=== PATIENT | male | born 1990 | race Caucasian/White ===

== ENCOUNTER 2016-09-11 20:37 | Emergency (ER) | payer OTHER ==
[2016-09-11 20:52] VITALS: BP 142/86; PULSE 96; RESP 16; TEMP 97.9; O2SAT 100
--- NOTE | 2016-09-11 21:05 | ED PDOC ---
HPI: Headache Time Seen by Provider: 09/11/16 20:41 Chief Complaint (Nursing): Headache Chief Complaint (Provider): Headache History Per: Patient History/Exam Limitations: no limitations Onset/Duration Of Symptoms: Hrs (x1) Current Symptoms Are (Timing): Still Present Additional Complaint(s): Talon Ramsey is a 26 year old male that presents ot the ED with a chief complaint of pressure in his left temporal lobe. Patient states that he was exercising earlier today when he felt a popping sensation in the left temporal lobe, at which point he ceased his exercising due to dizziness. After the dizziness subsided, within a few minutes, patient states that he began exercising again, at which point the pressure set in. Pt denies any headache or dizziness at this time. No LOC, no nausea or vomiting. Past Medical History Reviewed: Historical Data, Nursing Documentation, Vital Signs Vital Signs: Last Vital Signs Temp 97.9 F 09/11/16 20:50 Pulse 96 H 09/11/16 20:50 Resp 16 09/11/16 20:50 BP 142/86 09/11/16 20:50 Pulse Ox 100 09/11/16 20:50 - Medical History PMH: No Chronic Diseases - Family History Family History: States: Unknown Family Hx - Home Medications Home Medications: Ambulatory Orders Medication Instructions Recorded Naproxen 500 mg PO BID PRN #20 tab 03/07/15 Naproxen [Naprosyn] 500 mg PO Q12 PRN #14 tablet 01/23/16 - Allergies Allergies/Adverse Reactions: Allergies Allergy/AdvReac Type Severity Reaction Status Date / Time No Known Allergies Allergy Verified 09/11/16 20:50 Review of Systems Neurological: Positive for: Headache (pressure-like feeling in left temporal lobe) Physical Exam - Reviewed Nursing Documentation Reviewed: Yes Vital Signs Reviewed: Yes - Physical Exam Appears: Positive for: Non-toxic, No Acute Distress Head Exam: Positive for: ATRAUMATIC, NORMOCEPHALIC Skin: Positive for: Normal Color, Warm Eye Exam: Positive for: Normal appearance, EOMI, PERRL Neck: Positive for: Normal, Painless ROM Extremity: Positive for: Normal ROM Neurologic/Psych: Positive for: Alert, dismantler II-XII, Oriented. Negative for: Motor/Sensory Deficits - ECG O2 Sat by Pulse Oximetry: 100 (RA) Pulse Ox Interpretation: Normal Medical Decision Making Medical Decision Making: Impression: Exercise induced headache Plan: * Toradol 30 mg IM Discussed with patient signs and symptoms of exercise induced headaches, as well as post coital headaches. neuro exam non focal on re-eval. Pt without any complaints of pain. . Patient stable for discharge home. Scribe Attestation: Documented by Tomeka Butterfield, acting as a scribe for Kandice Pires PA-C. Provider Scribe Attestation: All medical record entries made by the Scribe were at my direction and personally dictated by me. I have reviewed the chart and agree that the record accurately reflects my personal performance of the history, physical exam, medical decision making, and the department course for this patient. I have also personally directed, reviewed, and agree with the discharge instructions and disposition. Disposition - Clinical Impression Clinical Impression: Headache - Patient ED Disposition Is Patient to be Admitted: No - Disposition Disposition: Routine/Home Disposition Time: 21:08 Condition: STABLE Additional Instructions: Primary exercise headaches These headaches: Are usually described as throbbing Occur during or after strenuous exercise Affect both sides of the head in most cases Secondary exercise headaches These headaches may cause: The same symptoms as primary exercise headaches Vomiting Loss of consciousness Double vision Neck rigidity Primary exercise headaches typically last between five minutes and 48 hours, while secondary exercise headaches usually last at least a day and sometimes linger for several days or longer. Instructions: Tension Headache (ED) Forms: [employer] (Maltese) - POA Present On Arrival: None
== END 2016-09-11 23:30 | disposition home or self-care (01) ==
LOC: H.ER 20:37
DX: R51 Headache (principal); R11.10 Vomiting, unspecified

== ENCOUNTER 2018-02-28 11:34 | Emergency (ER) | payer OTHER ==
[2018-02-28 11:41] VITALS: RESP 18; TEMP 98.5; O2SAT 98
--- NOTE | 2018-02-28 11:49 | ED PDOC ---
HPI: General Adult Time Seen by Provider: 02/28/18 11:36 History Per: Patient History/Exam Limitations: no limitations Additional Complaint(s): 27 y/o male presents to ER with son who was tested with positive flu. He is asymptomatic and requesting tamiflu. PMD: None provided Past Medical History Reviewed: Historical Data, Nursing Documentation, Vital Signs Vital Signs: Last Vital Signs Temp 98.5 F 02/28/18 11:40 Pulse 72 02/28/18 11:40 Resp 18 02/28/18 11:40 BP 133/86 02/28/18 11:40 Pulse Ox 98 02/28/18 11:40 - Medical History PMH: No Chronic Diseases - Surgical History Surgical History: No Surg Hx - Family History Family History: States: Unknown Family Hx - Home Medications Home Medications: Ambulatory Orders Medication Instructions Recorded RX: Naproxen 500 mg PO BID PRN #20 tab 03/07/15 RX: Naproxen [Naprosyn] 500 mg PO Q12 PRN #14 tablet 01/23/16 Oseltamivir Phosphate [Tamiflu] 75 mg PO DAILY #7 capsule 02/28/18 - Allergies Allergies/Adverse Reactions: Allergies Allergy/AdvReac Type Severity Reaction Status Date / Time No Known Allergies Allergy Verified 09/11/16 20:50 Review of Systems ROS Statement: Except As Marked, All Systems Reviewed And Found Negative Constitutional: Negative for: Fever Gastrointestinal: Negative for: Vomiting, Abdominal Pain Physical Exam - Reviewed Nursing Documentation Reviewed: Yes Vital Signs Reviewed: Yes - Physical Exam Appears: Positive for: Non-toxic, No Acute Distress Head Exam: Positive for: ATRAUMATIC, NORMOCEPHALIC Skin: Positive for: Normal Color, Warm, Dry Eye Exam: Positive for: Normal appearance, EOMI, PERRL Neck: Positive for: Normal, Painless ROM, Supple Cardiovascular/Chest: Positive for: Regular Rate, Rhythm. Negative for: Murmur Respiratory: Positive for: Normal Breath Sounds. Negative for: Wheezing Gastrointestinal/Abdominal: Positive for: Normal Exam, Soft. Negative for: Tenderness Back: Positive for: Normal Inspection. Negative for: L CVA Tenderness, R CVA Tenderness Extremity: Positive for: Normal ROM. Negative for: Pedal Edema, Swelling Neurologic/Psych: Positive for: Alert, Oriented (x3) - ECG O2 Sat by Pulse Oximetry: 98 (RA) Pulse Ox Interpretation: Normal Medical Decision Making Medical Decision Makin MDM: 27 y/o presents requesting prophylactic tamiflu --Prescription given Scribe Attestation: Documented by Brenda Lopez, acting as a scribe for Regla Rivas MD. Provider Scribe Attestation: All medical record entries made by the Scribe were at my direction and personally dictated by me. I have reviewed the chart and agree that the record accurately reflects my personal performance of the history, physical exam, medical decision making, and the department course for this patient. I have also personally directed, reviewed, and agree with the discharge instructions and disposition. Disposition - Clinical Impression Clinical Impression: Flu-like symptoms - Disposition Disposition Time: 11:43 Condition: STABLE Additional Instructions: Take medication once per day for 7 days. Follow up with primary medical doctor or return to the emergency department if you develop trouble breathing, weakness, or other new symptoms. Prescriptions: Oseltamivir Phosphate [Tamiflu] 75 mg PO DAILY #7 capsule Instructions: Oseltamivir Forms: [employer] (Tuvaluan) Print Language: SLOVENIAN
[2018-02-28 13:46] VITALS: BP 130/82; PULSE 76
== END 2018-02-28 12:30 | disposition home or self-care (01) ==
LOC: H.ER 11:34
DX: J11.1 Influenza due to unidentified influenza virus with other respiratory manifestations (principal)

== ENCOUNTER 2018-03-26 20:48 | Emergency (ER) | payer OTHER ==
[2018-03-26 22:03] VITALS: RESP 18
[2018-03-26] MEDS ORDERED: Sodium Chloride 0.9% 1,000 ML IV STA (23:30)
--- NOTE | 2018-03-26 23:34 | ED PDOC ---
HPI: Abdomen Time Seen by Provider: 03/26/18 22:58 Chief Complaint (Nursing): Abdominal Pain Chief Complaint (Provider): abdominal pain History Per: Patient History/Exam Limitations: no limitations Onset/Duration Of Symptoms: Days (1) Current Symptoms Are (Timing): Still Present Location Of Pain/Discomfort: RLQ Additional Complaint(s): 27 y/o male presents for evaluation of right lower abdominal pain x 1 day. Patient reports fevers for the last 3 days, resolved as of today, with associated headaches, sore throat, dry cough. Patient states his son was also sick with fever and tested positive for the flu on friday. Patient went to his PMD yesterday and was offered Tamiflu but declined it. Denies nausea/vomiting, chest pain, shortness of breath, palpitations, changes in bowel movements, urinary symptoms. Last dose of ibuprofen taken yesterday Past Medical History Reviewed: Historical Data, Nursing Documentation, Vital Signs Vital Signs: Last Vital Signs Temp 98.4 F 03/26/18 21:59 Pulse 64 03/26/18 21:59 Resp 18 03/26/18 21:59 BP 127/83 03/26/18 21:59 Pulse Ox 99 03/26/18 21:59 - Medical History PMH: No Chronic Diseases - Surgical History Surgical History: No Surg Hx - Family History Family History: States: Unknown Family Hx - Home Medications Home Medications: Ambulatory Orders Medication Instructions Recorded Naproxen 500 mg PO BID PRN #20 tab 03/07/15 Naproxen [Naprosyn] 500 mg PO Q12 PRN #14 tablet 01/23/16 Oseltamivir Phosphate [Tamiflu] 75 mg PO DAILY #7 capsule 02/28/18 Fluticasone Nasal [Flonase] 1 actuation NS BID #1 bottle 03/27/18 Naproxen [Naprosyn] 500 mg PO Q12 PRN #14 tablet 03/27/18 Polyethylene Glycol 3350 [Miralax] 17 gm PO DAILY PRN #5 powd.pack 03/27/18 - Allergies Allergies/Adverse Reactions: Allergies Allergy/AdvReac Type Severity Reaction Status Date / Time No Known Allergies Allergy Verified 09/11/16 20:50 Review of Systems ROS Statement: Except As Marked, All Systems Reviewed And Found Negative ENT: Positive for: Nose Congestion, Throat Pain Gastrointestinal: Positive for: Abdominal Pain Physical Exam - Reviewed Nursing Documentation Reviewed: Yes Vital Signs Reviewed: Yes - Physical Exam Appears: Positive for: Well, Non-toxic, No Acute Distress Head Exam: Positive for: ATRAUMATIC, NORMAL INSPECTION, NORMOCEPHALIC Skin: Positive for: Normal Color Eye Exam: Positive for: Normal appearance ENT: Positive for: TM Is/Are (clear bilaterally), Nasal Congestion. Negative for: Tonsillar Exudate, Tonsillar Swelling Cardiovascular/Chest: Positive for: Regular Rate, Rhythm Respiratory: Positive for: Normal Breath Sounds Gastrointestinal/Abdominal: Positive for: Bowel Sounds, Soft, Tenderness (mild RLQ tenderness) Back: Positive for: Normal Inspection Extremity: Positive for: Normal ROM Neurologic/Psych: Positive for: Alert, Oriented (x3) - Laboratory Results Result Diagrams: 03/27/18 00:01 03/27/18 00:01 - ECG O2 Sat by Pulse Oximetry: 99 - Progress ED Course And Treament: -cbc -cmp -lactic acid -influenza -rapid strep -IV NS bolus -IV toradol -Ct abd/pelvis CT SCAN OF THE ABDOMEN AND PELVIS WITH CONTRAST. CLINICAL HISTORY: Right lower quadrant pain. TECHNIQUE: Multiple axial and coronal CT images were obtained through the abdomen and pelvis after administration of intravenous contrast material. COMMENTS: Mild diffuse thickening of the bladder. Uncomplicated colonic diverticulosis. Moderate amount of fecal residue in the large bowels. The liver is of uniform attenuation without mass or defect. There is no intra or extrahepatic biliary ductal dilatation. The spleen is normal. The gallbladder is within normal limits. The pancreas is of normal contour and attenuation characteristics. There is no evidence of adrenal mass. Both kidneys demonstrate prompt and equal nephrograms. The kidneys are normal in size, shape and configuration. There is no evidence of renal or ureteral mass. No renal or ureteral calculi are identified. There is no hydroureter or hydronephrosis. No evidence for appendicitis. There is no bowel wall thickening. No evidence for small or large bowel obstruction. There is no evidence of abdominal ascites or lymphadenopathy. There is no evidence of intrinsic or extrinsic bladder mass. There is no pelvic ascites or lymphadenopathy. Images of the lung bases show no evidence of pleural or parenchymal mass. There are no pleural effusions. The bony structures are free of lytic or blastic lesions. IMPRESSION: Mild diffuse thickening of the bladder. Underdistention versus mild cystitis. Uncomplicated colonic diverticulosis. Moderate amount of fecal residue in the large bowels Patient states he is feeling better on re-eval Patient educated on findings, discharged with rx Naproxen, Flonase, Miralax Advised increase fluid intake, rest Follow up with PMD within 2-3 days Return precautions given Disposition - Clinical Impression Clinical Impression: Flu-like symptoms, Abdominal pain, Constipation - Patient ED Disposition Is Patient to be Admitted: No Counseled Patient/Family Regarding: Studies Performed, Diagnosis, Need For Followup, Rx Given - Disposition Disposition: Routine/Home Disposition Time: 03:08 Condition: IMPROVED Prescriptions: Fluticasone Nasal [Flonase] 1 actuation NS BID #1 bottle Naproxen [Naprosyn] 500 mg PO Q12 PRN #14 tablet PRN Reason: Pain, Moderate (4-7) Polyethylene Glycol 3350 [Miralax] 17 gm PO DAILY PRN #5 powd.pack PRN Reason: Constipation Instructions: Constipation in Adults, Viral Syndrome (DC), Acute Abdomen (Belly Pain) Forms: [employer] (Bulgarian)
[2018-03-27 00:36] LABS: BASO % 0.5 % (0.0-2.0); EOS # 0.1 K/uL (0.0-0.7); EOS % 1.8 % (0.0-4.0); HEMOGLOBIN 15.6 g/dL (12.0-18.0); LYMPH # 1.9 K/uL (1.0-4.3); LYMPH % 47.4 % (20.0-40.0); MEAN CELL VOLUME 90.4 fl (80.0-94.0); MEAN CORPUSCULAR HEMOGLOBIN 30.6 pg (27.0-31.0); MEAN CORPUSCULAR HGB CONC 33.9 g/dL (33.0-37.0); MEAN PLATELET VOLUME 10.6 fl (7.2-11.7); MONO # 0.5 K/uL (0.0-0.8); MONO % 11.9 % (0.0-10.0); NEUT # 1.6 K/uL (1.8-7.0); NEUT % 38.4 % (50.0-75.0); NRBC % 0.1 % (0.0-0.0); RBC 5.09 Mil/uL (4.40-5.90); RED CELL DISTRIBUTION WIDTH 13.4 % (11.5-14.5)
[2018-03-27 00:49] LABS: ALB/GLOB RATIO 1.4 (1.0-2.1); ALBUMIN 4.5 g/dL (3.5-5.0); ALT/SGPT 29 U/L (21-72); AST/SGOT 41 U/L (17-59); BLOOD UREA NITROGEN 14 mg/dl (9-20); CALCIUM 9.2 mg/dL (8.4-10.2); GFR NON-AFRICAN AMERICAN > 60
[2018-03-27] MEDS ORDERED: Sodium Chloride 0.9% 50 ML IV ONE (00:59)
[2018-03-27] MEDS ORDERED: Iohexol 300 100 ML IJ ONE (00:59)
[2018-03-27 02:52] VITALS: BP 112/64; PULSE 61; TEMP 98.2
[2018-03-27 03:09] VITALS: O2SAT 99
[2018-03-27 04:48] LABS: URINE BILIRUBIN NEGATIVE (NEGATIVE); URINE BLOOD NEGATIVE (NEGATIVE); URINE CLARITY CLEAR (Clear); URINE COLOR YELLOW (YELLOW); URINE GLUCOSE (UA) NEG (NEGATIVE); URINE LEUKOCYTE ESTERASE NEG Leu/uL (Negative); URINE PROTEIN NEGATIVE (NEGATIVE); URINE UROBILINOGEN 0.2-1.0 mg/dL (0.2-1.0)
--- NOTE | 2018-03-27 15:46 | CT ---
Date of service: 03/27/2018 PROCEDURE: CT Abdomen and Pelvis with contrast HISTORY: rlq pain COMPARISON: Not available TECHNIQUE: Contrast dose: 95 mL Omnipaque 300 Radiation dose: Total exam DLP = 420.27 mGy-cm. This CT exam was performed using one or more of the following dose reduction techniques: Automated exposure control, adjustment of the mA and/or kV according to patient size, and/or use of iterative reconstruction technique. FINDINGS: LOWER THORAX: Unremarkable. LIVER: Unremarkable. No gross lesion or ductal dilatation. GALLBLADDER AND BILE DUCTS: Unremarkable. PANCREAS: Unremarkable. No gross lesion or ductal dilatation. SPLEEN: Unremarkable. ADRENALS: Unremarkable. No mass. KIDNEYS AND URETERS: Unremarkable. No hydronephrosis. No solid mass. VASCULATURE: Unremarkable. No aortic aneurysm. No aortic atherosclerotic calcification or mural plaque present. BOWEL: No bowel obstruction. No significant retained stool. Scattered colonic diverticula. No evidence of diverticulitis. APPENDIX: Not identified. No secondary findings. PERITONEUM: Unremarkable. No free fluid. No free air. LYMPH NODES: There are numerous shotty subcentimeter lymph nodes in the small bowel mesentery as well as nodes medial to the cecum and ascending colon. These latter nodes measure up to 9 mm in short axis. The findings are consistent with nonspecific mesenteric adenitis. Please correlate clinically. BLADDER: Unremarkable. REPRODUCTIVE: Normal prostate BONES: No acute fracture. OTHER FINDINGS: None. IMPRESSION: Findings consistent with nonspecific mesenteric adenitis. No additional abnormality. The preliminary findings for this examination were reported by [facility] at 1:45 a.m. on 03/27/2018. There is discordance of this report with the preliminary findings. The findings suggestive of mesenteric adenitis were not described in the preliminary report of this examination.
== END 2018-03-27 03:14 | disposition home or self-care (01) ==
LOC: H.ER 20:48
DX: J11.1 Influenza due to unidentified influenza virus with other respiratory manifestations (principal); R10.31 Right lower quadrant pain; K59.00 Constipation, unspecified; K57.30 Diverticulosis of large intestine without perforation or abscess without bleeding
CPT/HCPCS: 74177; 80053; 81003; 83605; 85025; 87070; 87430; 87804; 96360; 99284; J1885; J7030; Q9967